=== PATIENT | male | born 1940 | race Caucasian/White ===

== ENCOUNTER 2016-10-18 06:25 | Day surgery (SDC) | payer MEDICARE, OTHER ==
--- NOTE | ~2016-10-18 | OP ---
Record Of Operation [facility] [address] [place]. [address] NAME: CRIS FLORES II : 36 [place] [facility] [place] [id number] AGE: 76 ADM/REG DATE : 10/18/16 MR#: [id number] REPORT SERV DATE: 10/18/16 DICTATED BY: REMEDIOS SANDY DATE: 10/18/16 REPORT STATUS : Draft TRANSCRIBED BY: MODL DATE: 10/18/16 DATE OF PROCEDURE: 10/18/2016 PROCEDURE PERFORMED: Fiberoptic bronchoscopy, bronchoscopy with bronchoalveolar lavage. INDICATIONS: For chronic cough. PROCEDURE IN DETAIL: After risks and benefits were explained, informed consent was obtained. The patient received conscious sedation under care of Anesthesiology with IV propofol. The bronchoscope was inserted nasally via the right nostril and advanced beyond the vocal cords without difficulty. The entire endobronchial tree was inspected. He had quite significant dynamic collapse at the level of the epiglottis, but his airways were otherwise unimpeded, and there were no obvious abnormalities. He had some mild hyperemia at the level of the larynx, but the rest was within normal limits. We advanced beyond the vocal cords and inspected the rest of the airway. There were no endobronchial lesions and we performed bronchoalveolar lavage by wedging the bronchoscope in the right middle lobe and then the lingula, instilling saline and aspirating that wash into Lukens trap. IMPRESSION: Chronic cough, mild upper airway hyperemia and inflammation, successful bronchoscopy with bronchoalveolar lavage. YUE/TARAN Remedios Sandy M.D. / [id number] CC: Arian Mike M.D.
[~2016-10-18 06:25] MED LIST: ANOROELLIPTA INH; ARNUITY ELLIP200 MCG INH; ASAB PO; ASTEPRO0.15 % NAS; ATRONASAL3; CALTRA600D PO; MUCINEX1200 MG PO; PROTONIX PO; QVAR40 MC1 INH; SINGULAIR1 PO; STIOLTO RESPIMAT4 GM INH; XOPENEX1.25 MG/3 INH; ZYRTEC ALLGY10 MG PO
[2016-10-18 09:45] LABS: BD FL SOURCE (NOT ORD) RML AND LINGULA; BF TOTAL CELL CT (NOT ORD 143 /MM3
[2016-10-18 09:46] LABS: BODY FLUID RBC (NOT ORD) 1000 /MM3
[2016-10-18 10:17] LABS: BD FL LYMPH (NOT ORD) 25 %; BF BASO (NOT OF) 0 %; BF LARGE MONONUCLEAR 49 %; BODY FLUID EOS (NOT ORD) 3 %; BODY FLUID SEG (NOT ORD) 23 %
== END 2016-10-18 23:59 | disposition home or self-care (01) ==
LOC: DMU 06:25
PROVIDERS: Internal Medicine Pulmonary Disease
PROC: 0B958ZX Drainage of Right Middle Lobe Bronchus, Via Natural or Artificial Opening Endoscopic, Diagnostic (ICD-10-PCS; principal; 2016-10-18 08:00)
DX: R05 Cough (principal); J45.909 Unspecified asthma, uncomplicated; J32.9 Chronic sinusitis, unspecified; M35.3 Polymyalgia rheumatica; M85.80 Other specified disorders of bone density and structure, unspecified site; K21.9 Gastro-esophageal reflux disease without esophagitis; H26.9 Unspecified cataract; Z88.5 Allergy status to narcotic agent; Z88.8 Allergy status to other drugs, medicaments and biological substances; Z87.891 Personal history of nicotine dependence; Z90.89 Acquired absence of other organs; Z90.49 Acquired absence of other specified parts of digestive tract; Z79.82 Long term (current) use of aspirin; Z79.51 Long term (current) use of inhaled steroids; Z79.899 Other long term (current) drug therapy; Z98.890 Other specified postprocedural states
CPT/HCPCS: 87015; 87070; 87102; 87116; 87205; 88112; 89051